=== PATIENT | female | born 2000 | race Caucasian/White ===

== ENCOUNTER 2020-02-07 10:54 | Emergency (ER) | payer MEDICAID ==
[~2020-02-07] VITALS: Ht 160 cm; Wt 73.0 kg
[2020-02-07 14:28] VITALS: BP 131/89
== END 2020-02-07 14:31 | disposition home or self-care (01) ==
LOC: ER 11:04
DX: Z03.818 Encounter for observation for suspected exposure to other biological agents ruled out (principal); R09.81 Nasal congestion; R06.00 Dyspnea, unspecified; F41.1 Generalized anxiety disorder
CPT/HCPCS: 71045; 81025; 87635; 93005; 99283; C9803

== ENCOUNTER 2022-07-20 12:53 | Emergency (ER) | payer MEDICAID ==
[~2022-07-20] VITALS: Ht 162.6 cm; Wt 90.0 kg
[2022-07-20 12:55] VITALS: BP 138/64
[2022-07-20] MEDS ORDERED: LORAZEPAM 0.5MG TABLET PO ONE (13:00)
== END 2022-07-20 13:50 | disposition home or self-care (01) ==
LOC: ER 13:05
DX: F41.9 Anxiety disorder, unspecified (principal)
CPT/HCPCS: 81025; 99283

== ENCOUNTER 2023-10-31 05:07 | Emergency (ER) | payer MEDICAID ==
[2023-10-31 05:18] VITALS: O2SAT 97
[2023-10-31 05:44] LABS: BASOPHILS % 0.3 % (0.0-2.0); DIFFERENTIAL COMMENT 0; EOSINOPHILS % 0.8 % (0.0-5.0); HEMATOCRIT. 37.3 % (36.0-48.0); HEMOGLOBIN. 12.4 g/dL (12.0-16.0); MEAN CORPUSCULAR HGB CONC 33.1 g/dL (31.0-37.0); MEAN CORPUSCULAR VOLUME 78.5 fL (81.0-99.0); MEAN PLATELET VOLUME 8.6 fl (7.4-10.4); MONOCYTES % 5.5 % (2.0-8.0); NEUTROPHILS % 74.4 % (40.0-76.0); PLATELET 238 x1000/uL (130-400); RED BLOOD CELL COUNT 4.75 mill/uL (4.2-5.4); RED CELL DISTRIBUTION WIDTH 17.1 % (11.6-14.6); WHITE BLOOD COUNT 12.2 x1000/uL (4.5-11.0)
[2023-10-31 05:51] LABS: CHLORIDE 107 mEq/L (98-107); POTASSIUM 3.8 mEq/L (3.5-5.1); SODIUM 138 mEq/L (136-145)
[2023-10-31 05:52] LABS: CARBON DIOXIDE 26 mEq/L (21-32)
[2023-10-31 05:53] LABS: CALCIUM 9.5 mg/dL (8.7-10.4)
[2023-10-31] MEDS: IBUPROFEN 600MG TABLET PO NR (05:54)
[2023-10-31 05:57] LABS: CREATININE 0.7 mg/dL (0.6-1.0); GLUCOSE 105 mg/dL (70-105); UREA NITROGEN BLOOD 19 mg/dL (9-23)
[2023-10-31 06:13] LABS: TROPONIN I HIGH SENSITIVITY < 4 ng/L (3.0-34)
[2023-10-31] MEDS ORDERED: IBUP-2029 MT (07:13)
[2023-10-31 07:32] VITALS: BP 128/78; PULSE 81; RESP 16; TEMP 36.72516; O2SAT 99
== END 2023-10-31 07:35 | disposition home or self-care (01) ==
LOC: ER 05:07
DX: R07.89 Other chest pain (principal)
CPT/HCPCS: 36415; 80048; 84484; 85025; 99283

== ENCOUNTER 2024-11-10 09:48 | Emergency (ER) | payer MEDICAID ==
[~2024-11-10] VITALS: Ht 160 cm; Wt 95.0 kg
[~2024-11-10 09:48] MED LIST: IBUP-2029 MT
[2024-11-10 09:59] VITALS: TEMP 36.7; O2SAT 100
[2024-11-10] MEDS: KETOROLAC 30MG/ML VIAL IM ONE (11:09)
[2024-11-10] MEDS ORDERED: IBUP-2029 MT (11:21)
[2024-11-10 11:34] VITALS: BP 116/51; PULSE 60; RESP 18; O2SAT 100
== END 2024-11-10 11:34 | disposition home or self-care (01) ==
LOC: ER 09:48
DX: M79.671 Pain in right foot (principal); F41.9 Anxiety disorder, unspecified; Z98.890 Other specified postprocedural states; Z79.899 Other long term (current) drug therapy; X50.1XXA Overexertion from prolonged static or awkward postures, initial encounter; Y93.89 Activity, other specified; Y92.89 Other specified places as the place of occurrence of the external cause; Y99.8 Other external cause status
CPT/HCPCS: 99283; 81025; 73630; 96372; J1885